=== PATIENT | female | born 1950 | race Caucasian/White ===

== ENCOUNTER 2017-09-23 09:42 | Outpatient (CLI) | payer MEDICARE, OTHER ==
[2017-09-23] VITALS (9 sets, daily range): BP systolic 125–178; BP diastolic 47–81; PULSE 47–54; TEMP 97.6–97.8
[~2017-09-23] VITALS: Ht 172.8 cm; Wt 86.0 kg
[2017-09-23] MEDS ORDERED: TENORETIC 100 11 TAB PO (10:33)
[2017-09-23] MEDS ORDERED: SYNTHROID0.05 MG/TA PO (10:33)
[2017-09-23] MEDS ORDERED: PRILOSEC 20MG20 MG PO (10:34)
[2017-09-23] MEDS ORDERED: ASPIRIN E.C. 8181 MG PO (10:36)
[2017-09-23] MEDS ORDERED: CALCIUM 600-D 61 TAB PO (10:37)
== END 2017-09-23 15:49 | disposition home or self-care (01) ==
LOC: COL.CAR 09:42
DX: S32.010A Wedge compression fracture of first lumbar vertebra, initial encounter for closed fracture (principal); K21.9 Gastro-esophageal reflux disease without esophagitis; Z79.82 Long term (current) use of aspirin
CPT/HCPCS: C1713; J2250; J3010; J7120

== ENCOUNTER → 2021-05-29 | Outpatient (CLI) | payer MEDICARE, OTHER ==
[~2021-05-29] VITALS: Ht 172.7 cm; Wt 91.2 kg
[~2021-05-29] MED LIST: ASPIRIN E.C. 8181 MG PO; B COMPLEX #11 TA1 PO; CALCIUM 600 MG1 EAC2 PO; CALCIUM 600-D 61 TAB PO; DITROPAN 5MG TAB5 MG PO; EUTHYROX75 MCG PO; HCTZ 25MG TAB25 MG PO; LIPITOR20 MG PO; PRILOSEC 20MG20 MG PO; PROTONIX 40MG T40 MG PO; SYNTHROID0.05 MG/TA PO; TENORETIC 100 11 TAB PO; TOPROL XL 25MG25 MG PO; VITAMIN E1000 U/CAP PO
[2021-05-29 08:32] VITALS: BP 154/83; PULSE 67
--- NOTE | 2021-05-29 09:53 | NUR ---
UNABLE TO GET AHOLD OF AA, PT OPTED TO GET MRI DONE WITHOUT SEDATION.
== END ==
LOC: COL.RAD 08:07
DX: M48.061 Spinal stenosis, lumbar region without neurogenic claudication (principal); M47.816 Spondylosis without myelopathy or radiculopathy, lumbar region; Z98.890 Other specified postprocedural states
CPT/HCPCS: A9585; J2250; J2704; J3010

== ENCOUNTER → 2021-06-06 | Outpatient (CLI) | payer MEDICARE, OTHER | LOC: MHCPAIN 12:58 | DX: M53.3 Sacrococcygeal disorders, not elsewhere classified (principal); M70.62 Trochanteric bursitis, left hip; M47.817 Spondylosis without myelopathy or radiculopathy, lumbosacral region; M96.1 Postlaminectomy syndrome, not elsewhere classified | CPT/HCPCS: G0463 ==

== ENCOUNTER → 2021-06-12 | Outpatient (CLI) | payer MEDICARE, OTHER | LOC: MHCPAIN 10:44 | DX: M53.3 Sacrococcygeal disorders, not elsewhere classified (principal); M70.62 Trochanteric bursitis, left hip; M47.818 Spondylosis without myelopathy or radiculopathy, sacral and sacrococcygeal region; M25.552 Pain in left hip | CPT/HCPCS: G0260; J1040; Q9967 ==

== ENCOUNTER → 2021-06-26 | Outpatient (CLI) | payer MEDICARE, OTHER | LOC: MHCPAIN 14:06 | DX: M47.816 Spondylosis without myelopathy or radiculopathy, lumbar region (principal); M53.3 Sacrococcygeal disorders, not elsewhere classified; M54.16 Radiculopathy, lumbar region; M96.1 Postlaminectomy syndrome, not elsewhere classified | CPT/HCPCS: G0463 ==

== ENCOUNTER → 2021-07-13 | Outpatient (CLI) | payer MEDICARE, OTHER | LOC: MHCPAIN 09:58 | DX: M47.817 Spondylosis without myelopathy or radiculopathy, lumbosacral region (principal); M53.3 Sacrococcygeal disorders, not elsewhere classified; M54.16 Radiculopathy, lumbar region | CPT/HCPCS: J1100; Q9967 ==

== ENCOUNTER → 2021-07-26 | Outpatient (CLI) | payer MEDICARE, OTHER | LOC: MHCPAIN 10:23 | DX: M47.816 Spondylosis without myelopathy or radiculopathy, lumbar region (principal); M53.3 Sacrococcygeal disorders, not elsewhere classified; M54.16 Radiculopathy, lumbar region; M96.1 Postlaminectomy syndrome, not elsewhere classified | CPT/HCPCS: G0463 ==

== ENCOUNTER → 2021-08-17 | Outpatient (CLI) | payer MEDICARE, OTHER | LOC: MHCPAIN 12:38 | DX: M47.817 Spondylosis without myelopathy or radiculopathy, lumbosacral region (principal); M53.3 Sacrococcygeal disorders, not elsewhere classified; M54.16 Radiculopathy, lumbar region | CPT/HCPCS: J0461; J1100; Q9967 ==

== ENCOUNTER → 2021-09-19 | Outpatient (CLI) | payer MEDICARE, OTHER | LOC: MHCPAIN 12:23 | DX: M47.896 Other spondylosis, lumbar region (principal); M54.16 Radiculopathy, lumbar region; M96.1 Postlaminectomy syndrome, not elsewhere classified | CPT/HCPCS: G0463 ==

== ENCOUNTER → 2022-01-09 | Outpatient (CLI) | payer MEDICARE, OTHER | LOC: MHCPAIN 11:08 | DX: M47.896 Other spondylosis, lumbar region (principal); M54.16 Radiculopathy, lumbar region; M53.3 Sacrococcygeal disorders, not elsewhere classified; M25.551 Pain in right hip | CPT/HCPCS: G0463 ==

== ENCOUNTER → 2022-01-25 | Outpatient (CLI) | payer MEDICARE, OTHER | LOC: MHCPAIN 08:17 | DX: M47.817 Spondylosis without myelopathy or radiculopathy, lumbosacral region (principal); M53.3 Sacrococcygeal disorders, not elsewhere classified; M54.16 Radiculopathy, lumbar region | CPT/HCPCS: J1100; Q9967 ==

== ENCOUNTER → 2022-02-14 | Outpatient (CLI) | payer MEDICARE, OTHER | LOC: MHCPAIN 14:07 | DX: M47.896 Other spondylosis, lumbar region (principal); M53.3 Sacrococcygeal disorders, not elsewhere classified; M54.50 Low back pain, unspecified; M96.1 Postlaminectomy syndrome, not elsewhere classified | CPT/HCPCS: G0463 ==

== ENCOUNTER → 2022-03-27 | Outpatient (CLI) | payer MEDICARE, OTHER | LOC: MHCPAIN 14:11 | DX: M47.896 Other spondylosis, lumbar region (principal); M54.16 Radiculopathy, lumbar region; M96.1 Postlaminectomy syndrome, not elsewhere classified | CPT/HCPCS: G0463 ==